=== PATIENT | female | born 2005 | race Caucasian/White ===

== ENCOUNTER 2025-03-30 21:54 | Emergency (ER) | payer OTHER ==
[~2025-03-30] VITALS: Ht 160 cm; Wt 49.3 kg
[2025-03-30 21:56] VITALS: BP 113/64; TEMP 97.3; O2SAT 99
[2025-03-30] MEDS ORDERED: METO37.5 PO (22:09)
== END 2025-03-30 23:53 | disposition left against medical advice (07) ==
LOC: M ED 21:54
DX: Z53.21 Procedure and treatment not carried out due to patient leaving prior to being seen by health care provider (principal)

== ENCOUNTER → 2025-03-30 | Outpatient (CLI) | payer OTHER ==
[~2025-03-30] MED LIST: METO37.5 PO
== END ==
LOC: M RAD 13:32
DX: M25.551 Pain in right hip (principal)

== ENCOUNTER 2025-04-04 21:31 | Emergency (ER) | payer OTHER ==
[~2025-04-04] VITALS: Ht 160 cm; Wt 54.5 kg
[2025-04-04 21:33] VITALS: BP 108/58; TEMP 97.6; O2SAT 96
== END 2025-04-05 00:06 | disposition left against medical advice (07) ==
LOC: M ED 21:31
DX: Z53.21 Procedure and treatment not carried out due to patient leaving prior to being seen by health care provider (principal)

== ENCOUNTER 2025-08-31 15:40 | Emergency (ER) | payer OTHER, SELFPAY ==
[~2025-08-31] VITALS: Ht 160 cm; Wt 50.4 kg
[2025-08-31 16:25] LABS: BASO # 0.1 10^3/uL (0.0-0.2); BASO % 0.8 % (0.0-1.0); EOS # 0.1 10^3/uL (0.0-0.5); EOS % 1.4 % (0.0-3.0); LYMPH # 1.8 10^3/uL (1.5-5.0); LYMPH % 28.8 % (24.0-44.0); MONO # 0.5 10^3/uL (0.0-0.8); MONO % 7.7 % (2.0-8.0); NEUTROPHILS # 3.9 10^3/uL (1.5-8.5); NEUTROPHILS % 61.1 % (36.0-66.0); PLATELET COUNT, AUTOMATED 294 10^3/uL (150-450)
[2025-08-31 16:48] LABS: CALCIUM LEVEL 9.4 MG/DL (8.5-10.1); CARBON DIOXIDE LEVEL 28 MMOL/L (20-31); CHLORIDE LEVEL 105 MMOL/L (98-107); CREATININE FOR GFR 0.66 MG/DL (0.55-1.30); GLOMERULAR FILTRATION RATE > 90.0 (>60); HCG, SERUM QUANTITATIVE < 2.6 MIU/ML (<4.2); POTASSIUM SERUM 3.5 MMOL/L (3.5-5.1); SODIUM LEVEL 143 MMOL/L (136-145)
[2025-08-31 20:22] VITALS: BP 121/68; TEMP 98.8; O2SAT 99
== END 2025-08-31 20:53 | disposition home or self-care (01) ==
LOC: M ED 15:40
DX: N93.9 Abnormal uterine and vaginal bleeding, unspecified (principal)